=== PATIENT | male | born 1975 | race Caucasian/White ===

== ENCOUNTER 2024-01-12 06:08 | Day surgery (SDC) | payer OTHER, SELFPAY ==
--- NOTE | 2024-01-11 13:32 | PDOC.DSDIS_ITS ---
Date of service: 01/12/24 Time of Service: 10:47 Discharge Plan Disposition Patient Disposition: Home Condition: Good Discharge Details Reason For Visit: bilateral inguinal hernia repair Attending Provider: Chaparrita Wiggins Primary Care Provider: Darian De Guzman Home Meds and New Rx's Prescriptions: New tramadol 50 mg tablet 50 mg PO Q4H PRNQty: 14 0RF Discharge Instructions Additional Instructions: Dr. Wiggins HERNIA REPAIR ? POSTOPERATIVE INSTRUCTIONS Patients who have this type of surgery can usually be expected to return to work within two weeks and have minimal amounts of discomfort. ? ACTIVITY: The day of surgery should be spent resting. However, you can be up for short periods of time, I.E., going to the bathroom or kitchen. Avoid lifting or straining. On the day following surgery, you can be up and about as desired. ? LIFTING: Restrict your lifting to no more than five (5) pounds for two weeks after surgery. ??We will decide when you are done with restrictions and when you can return to work, at your follow-up appointment.? No sexual activity for two weeks.? ? DIET: There are no dietary restrictions following surgery. However, you may want to start with small amounts of liquids to avoid nausea the day of surgery. ? INCISION CARE: You will notice purple skin glue closing the incision.? Do not peel this off- it will wear off on its own.? After 24 hours you may shower. The dressing may be replaced for comfort, but is not necessary. ?An ice bag may be applied to the incision for 72 hours following surgery. ? SIGNS OF INFECTION: It is not unusual to have some black and blue discoloration of the skin around the incision, but also scrotum and penis.? ?It will slowly disappear. If you have any increased redness, drainage, fever (above 100 degrees), please contact your doctor for an examination. ? DISCOMFORT: You may expect to have some mild discomfort at the incision sight. If severe pain develops you should contact your doctor for further instructions. ? URINATION: Patients who have surgery occasionally have problems urinating. If you experience problems and are not able to urinate within 6 hours following your surgery, please call your doctor immediately or go to your nearest Emergency Room for evaluation. ? DRIVING: NO driving for three (3) days after surgery, or if you are still taking narcotic pain medication.? ? MEDICATIONS: Alternate Tylenol 1000mg by mouth every 8 hours and Ibuprofen 600mg every 6 hours. ?Make sure you take ibuprofen with food and not on an empty stomach. ?Take the Tylenol and ibuprofen continuously for the first 72hrs- not just when you have pain.? Use the tramadol for breakthrough pain/pain >7.? Use ICE!?? Twenty minutes on, and then off, continuously for the first 72hours. If you are taking narcotic pain medication, follow the instructions on the label and do not drive. Pain medications can make you very constipated. Make sure you are moving your bowels daily. If not, take Miralax or Milk of Magnesia.?? Anesthesia makes you very constipated.? Take a dose of milk of magnesia the morning after surgery. ? REPORT: Unusual swelling, severe pain, unresolved nausea, signs of infection, or difficulty in urination to your surgeon. Follow up in clinic with Dr. Wiggins in 2 weeks.? [phone] Stand Alone Forms: Anesthesia Discharge Inst., Nerve Block Instructions, Epifanio Godinez (DSU) Referrals: Chaparrita Wiggins, [OSTEOPATHIC DOCTOR] - 01/25/24 11:30 am Activity:: see above Remove Dressings/Wound Care:: 24 hours Shower/Bathe:: 24 hours Diet:: see above Discharge Orders Discharge Orders: Discharge Order (Routine); Ordered 01/12/24 Ordered By: Chaparrita Wiggins DS: Diagnosis Discharge Diagnosis (1) Pulmonary nodule: Status: Acute (2) Smoker: Status: Acute (3) Indirect bilateral inguinal hernia: Status: Acute Asessment and Plan: The patient is doing well post-op from their bilat indirect inguinal hernia surgery.? They are having no nausea or vomiting. They are tolerating liquids and a snack. The pt is not having any chest pain or SOB.? Their pain is adequately c ontrolled. They have been able to urinate.? ?HEENT:? no eye pain/drainage/redness/swelling. Mild sore throat ?Cardio- NSR, no chest pain, BP stable- see VS record ?Pulm: no sob or productive cough. No hemoptysis ?Incision- dressing is c/d/i w/ no excessive bleeding or drainage ?I discussed with the patient the findings at the time of surgery and the patient?s progress. ?We reviewed expectations at home; what the patient could expect for recovery time, and in the post-operative period.? We discussed the importance of walking to avoid blood clots and pneumonia.? We discussed and reviewed the patient's post-operative wound care and dressing needs.?? We reviewed their step-ortiz pain management plan, Rx called to the pharmacy of their choice.? We reviewed activity and limitations-see discharge instructions. We reviewed warning signs, and when to seek medical attention- see d/c instructions.?? Patient was given a postoperative follow-up appointment. Patient verbalized understanding of their postoperative instructions, how do to take care of themselves and their incision, and the pain management plan. Please see discharge instructions.?
--- NOTE | 2024-01-11 21:35 | ROE_ITS ---
Date of service: 01/12/24 Time of Service: 10:00 Operative Note Operative Note DATE OF PROCEDURE: 01/12/24 PRE-OP DIAGNOSIS: Bilateral inguinal hernia POST-OP DIAGNOSIS: same (Bilateral indirect inguinal hernias) PROCEDURE: open right inguinal hernia repair w/ mesh SURGEON: Chaparrita Koenig [employer] DRIVER: Shanique Marrufo ANESTHESIA TYPE: Local By Surgeon, General:No Airway and Primary Nerve Block Refer to Anesthesia Record ESTIMATED BLOOD LOSS: 10 PATHOLOGY: none sent COMPLICATIONS: None Patient was transported to: PACU Patient's condition: stable Procedure Description: INDICATIONS: The pt is here today for surgery regarding symptomatic --- inguinal hernia that has failed outpatient conservative medical management and he is here today for repair. Informed consent was obtained, explaining risks and benefits of the procedure including but not limited to bleeding, infection, pneumonia, blood clots, chronic pain, chronic numbness, damage to testicle resulting in removal, recurrence of hernia, reaction to Mesh necessitating removal, and other unforetold complications, and complications of anesthesia-which were addressed by the ANIMAL ATTENDANT. The patient is marked in preOp prior to the procedure DESCRIPTION OF PROCEDURE:? The pt is then brought to the operative room suite. Anesthesia was administered per the Department of Anesthesia. ?A nerve block was performed by anesthesia under US guidance. The patient was prepped and draped in the usual sterile fashion using ChloraPrep scrub solution. Pause for the cause was done. He did receive preop IV antibiotics. The right side, which is the larger of the 2 hernias, is attended to first. 30 mL of .25% Marcaine w/ epinephrine was used for local anesthetization in total, 15 cc per side. A #12 blade was used to make an incision over the external ring. Electrocautery used to provide hemostasis and dissect down to the fascia. The fascia was pretty much obliterated and there was nothing to open. The cord is elevated. The nerve was not identified. There small is a cord lipomas.? Electro-cautery is used to provide hemostasis. A Case drain was placed around the cord to assist in mobilization. The cord was explored. ?There was is medium to large hernia sac on the cord. There is no direct hernia pushing through the floor. The hernia sac is dissected off the cord using a combination of blunt dissection and electrocautery.? Electrocautery is used to provide hemostasis.?? There is omentum within the hernia sac. High ligation of the sac and excision of the omentum is performed? The hernia sac remnant is than inverted and returned to the abdominal cavity.? A extra-large size plug is than inserted into the defect through the internal ring, and over sewn to tighten up the ring with 2-0 vicryl.? Please see RN notes from Lot number of the Bard mesh patch/plug.? The cord structures are still able to freely move through the ring itself.? The patch was then placed onto the floor, and using 2-0 Vicryl, sewn into the pubic tubercle and the shelving portions of the inguinal ligament, in the standard Lichenstein fashion.? ?The tails of the mesh are brought around the cord, sewn together w/ 2-0 Vicryl, and tucked under the external oblique.? The wound was copiously irrigated. There was no bleeding noted. The drain was removed. All structures are returned to normal anatomical position. The nerve is not sewn into the mesh, nor caught up in any sutures. The external oblique is re- approximated using 2-0 vicryl in a running fashion. ?Deep tissue was approximate d with 3-0 Vicryl in a running fashion, and skin was approximated with 4-0 Monocryl in a running subcuticular fashion. -The same procedure is repeated on the left side. There is a medium indirect h ernia which contains omentum. High ligation of the sac and omentum was performed and this is returned to the abdominal cavity. There is no cord lipoma. There is no direct hernia sac. A large plug is placed through the defect. Please see the RN notes for the lot number. Skin glue and sterile dressings are applied. The patient tolerated the procedure without complications to recovery in stable condition. CHAPARRITA KOENIG, DO
[2024-01-12] VITALS (10 sets, daily range): BP systolic 122–163; BP diastolic 61–84; PULSE 69–86; RESP 16–29; TEMP 36.2–36.8; O2SAT 93–99; BMI 29.5
[2024-01-12] MEDS: Gabapentin 300 MG CAP 600 MG PO (06:41)
[2024-01-12] MEDS: Acetaminophen 500 MG TAB 1000 MG PO (06:41)
[2024-01-12] MEDS: Lactated Ringers 1,000 ML 80 ML IV (06:59)
--- NOTE | 2024-01-12 06:59 | W.ANESPRE ---
General Info Date of Service Date Performed: 01/12/24 Height: 5 ft 8 in Weight: 87.997 kg Body Mass Index (BMI): 29.5 Surgical Procedure: Operation Date: 01/12/24 07:40 Proposed Procedure Side Surgeon p Herniorrhaphy Inguinal w/Mesh Bilateral Chaparrita Wiggins DO Meds Allergies and Home Medications Allergies Allergy/AdvReac Type Severity Reaction Status Date / Time No Known Allergies Allergy Verified 01/12/24 06:39 Home Medication Medication Instructions Recorded tramadol 50 mg tablet 50 mg PO Q4H PRN #14 tabs 01/11/24 Current Visit Medications: Current Medications Generic Name Dose Route Start Last Admin Trade Name Freq PRN Reason Stop Dose Admin Acetaminophen 1,000 mg 01/12/24 06:00 01/12/24 06:41 Acetaminophen 500 Mg Tab PO 02/10/24 23:59 1,000 mg PREOP DIEGO Administration Gabapentin 600 mg 01/12/24 06:00 01/12/24 06:41 Gabapentin 300 Mg Cap PO 02/10/24 23:59 600 mg PREOP DIEGO Administration Ringer's Solution 1,000 mls @ 80 mls/hr 01/12/24 06:00 IV 02/10/24 23:59 INFUSION DIEGO Cefazolin Sodium/Dextrose 2 gm in 50 mls @ 100 mls/hr 01/12/24 06:00 Ancef Duplex IVPB 02/10/24 23:59 PREOP DIEGO Ondansetron HCl 4 mg/ Sodium 52 mls @ 200 mls/hr 01/12/24 09:38 Chloride IVPB 02/11/24 09:37 Q6H PRN PRN IV Miscellaneous Supplies 1 each 01/12/24 06:00 Iv Access IV 02/10/24 23:59 DIRECTED DIEGO Morphine Sulfate 2 mg 01/12/24 09:38 Morphine 4 Mg/Ml Syr IVP 02/11/24 09:37 Q1H PRN PRN Sodium Chloride 0 ml 01/12/24 06:00 Normal Saline Flush 10 Ml Syr IV 02/10/24 23:59 PRN PRN Sodium Chloride 0 ml 01/12/24 06:00 Normal Saline 10 Ml Vial IJ 02/10/24 23:59 DIRECTED PRN Sterile Water 0 ml 01/12/24 06:00 Water,Injection,Sterile 10 Ml Vial IJ 02/10/24 23:59 DIRECTED PRN Tramadol HCl 50 mg 01/12/24 09:38 Tramadol 50 Mg Tab PO 02/11/24 09:37 Q6H PRN PRN Pain PFSH Active Problems Active Problems: Problem Status Onset Code Pulmonary nodule R91.1 Smoker F17.200 Right inguinal hernia K40.90 Tobacco Smoking/Tobacco Use Status: Current every day Tobacco Type: cigarettes Alcohol Alcohol Intake: current Alcohol intake frequency: a few times a week Alcohol type: beer Substance Use Substance use: Never Substance use type: does not use Details: 01/12/24: smoked 2 cigarettes prior to pre-op Vital Signs and Lab Results Vital Signs Most Recent Vital Signs in EMR: Most Recent Vital Signs Temp Pulse Resp BP Pulse Ox 36.8 C 86 16 127/79 98 01/12/24 06:30 01/12/24 06:30 01/12/24 06:30 01/12/24 06:30 01/12/24 06:30 Lab Results Blood Type / Crossmatch: No Data to Display Complete Blood Count: No Data to Display Complete Metabolic Panel: No Data to Display Liver Function Panel: No Data to Display Coagulation Panel: No Data to Display Cardiac Panel: No Data to Display Arterial Blood Gas: No Data to Display Venous Blood Gas: No Data to Display Pancreas Panel: No Data to Display Thyroid Panel: No Data to Display Infectious Disease: No Data to Display Blood Cultures: No Data to Display Toxicology Panel: No Data to Display Anesthesia Assessment and Plan Anesthesia History Personal History: No History of General Anesthesia Family History: No Family History of Anesthesia Complications Exercise Tolerance Exercise Tolerance: Metabolic Equivalents>4 Cardiac & Pulmonary Exam Cardiac Exam: Normal S1/S2 Heart Sounds Pulmonary Exam: Clear Bilateral Breath Sounds Implantable Cardiac Device Does patient have a Pacemaker or an ICD?: No Airway Exam Known Difficult Airway: No Mallampati Class: 2 Mouth Opening: Normal (> 3cm) Thyromental Distance: Greater than 3 cm Neck Range of Motion: Full ROM Neck Circumference: Normal Teeth Condition: Normal Dentition ASA Classification ASA Score: ASA 2 Emergency Case?: No NPO Status NPO Status: NPO Clears >2 hours, Solids >8 hours Anesthesia Plan Resuscitation Status: Full Code Anesthesia Technique: General Anesthesia Airway Planned: Endotracheal Tube Monitors Used: Standard Monitors Preoperative Comments:: Smoker 20/day.
[2024-01-12] MEDS: ceFAZolin 2 GM/50 ML BAG IVPB (07:40)
--- NOTE | 2024-01-12 08:30 | W.ANESNERVE ---
Nerve Block Single Injection Procedure Date and Time Date Performed: 01/12/24 Procedure Start: 07:48 Location Where Procedure Performed Procedure Location: Operating Room Procedure Stop: 07:58 Reason Performed: Postoperative Analgesia Requesting Provider: Chaparrita Wiggins Timeout Performed Timeout Performed: Yes Monitoring Used ECG, Blood Pressure, SpO2, ETCO2 and See EMR for corresponding vital signs Sterility Sterility: Hand Hygiene, Surgical Cap, Surgical Mask, Sterile Gloves and Chlorhexidine Sedation Given During Procedure Sedation Given (Indicate Dose Given): No Sedation given Patient Mental Status Patient Mental Status: Performed under general anesthesia Nerve Block 1st Nerve Block: Laterality: Left Block Type: TAP Unilateral Ultrasound Image Saved?: Yes Needle / Catheter Used: 100mm SonoPlex II Local Anesthetic Bolus (Indicate Dose Given): None, Bupivacaine 0.5% Dose:: 0.5%/15cc (75mg) and Exparel Dose:: 1.33%/5cc (66.5mg) Additives (Indicate Dose Given): Epinephrine to make 1:200,000 (5mcg/ml) Dose:: 75mcg Ultrasound: Sterile probe cover and gel used Nerve Stimulator: Not Used Paresthesia: None Procedure Tolerated: No Complications and Patient tolerated well Procedure Outcome: Successful Performed By: Thomas Mason 2nd Nerve Block: Laterality: Right Block Type: TAP Unilateral Ultrasound Image Saved?: Yes Needle / Catheter Used: 100mm SonoPlex II Local Anesthetic Bolus (Indicate Dose Given): None, Bupivacaine 0.5% Dose:: 0.5%/15cc (75mg) and Exparel Dose:: 1.33%/ (66.5mg) Additives (Indicate Dose Given): Epinephrine to make 1:200,000 (5mcg/ml) Dose:: 75mcg Ultrasound: Sterile probe cover and gel used Nerve Stimulator: Not Used Paresthesia: None Procedure Tolerated: No Complications and Patient tolerated well Procedure Outcome: Successful Performed By: Thomas Mason
--- NOTE | 2024-01-12 12:22 | W.ANESPOSTOP ---
Postoperative Evaluation Date, Time and Location Date Performed: 01/12/24 Time Performed: 12:22 Patient Location: Day Surgery Unit Vital Signs Most Recent Imported Vital Signs: Most Recent Vital Signs Temp Pulse Resp BP Pulse Ox 36.2 C L 79 16 131/84 96 01/12/24 11:21 01/12/24 11:21 01/12/24 11:21 01/12/24 11:21 01/12/24 11:21 Pain Score Most Recent Pain Score: Most Recent Pain Score Pain Level 0 01/12/24 11:21 Assessment Mental Status: Awake (Alert & Oriented to Patient Baseline) Airway and Respiratory Function: Patent airway with normal (patient baseline) respiratory exam Cardiovascular Function: Hemodynamically Stable Hydration Status: Adequately Hydrated Nausea & Vomiting: No Nausea or Vomiting Pain: Pt. Denies Any Pain Peripheral Nerve Block: Regional nerve block not resolved at time of post operative discharge
== END 2024-01-12 11:42 | disposition home or self-care (01) ==
PROVIDERS: PCP Nurse Practitioner Family; Visit Provider Surgery
PROC: (CPT 49505; principal; 2024-01-12 07:30)
DX: K40.20 Bilateral inguinal hernia, without obstruction or gangrene, not specified as recurrent; F17.210 Nicotine dependence, cigarettes, uncomplicated; R91.1 Solitary pulmonary nodule
CPT/HCPCS: 49505; 76942; C1781; C9290; J0171; J0665; J0690; J1100; J1885; J2001; J2250; J2405; J2704; J3010

== ENCOUNTER 2024-01-29 01:13 | Outpatient (CLI) | payer OTHER, SELFPAY ==
[2024-01-29 16:25] LABS: Hemoglobin A1C 5.6 % (<5.7)
[2024-01-29 16:43] LABS: Calculated LDL 133 mg/dL (<100); Cholesterol 201 mg/dL (<200); HDL Cholesterol 42 mg/dL (40-60); Triglyceride 132 mg/dL (<150)
== END 2024-01-29 01:14 | disposition home or self-care (01) ==
LOC: LBO 01:13
PROVIDERS: PCP Nurse Practitioner Family; Visit Provider Nurse Practitioner Family
DX: Z13.220 Encounter for screening for lipoid disorders (principal); Z13.1 Encounter for screening for diabetes mellitus
CPT/HCPCS: 36415; 80061; 83036